=== PATIENT | male | born 1950 | race Caucasian/White ===

== ENCOUNTER 2018-08-30 00:25 | Emergency (ER) | payer OTHER ==
[2018-08-30 01:40] LABS: ADD UMIC YES; UR ASCORBIC ACID NEGATIVE (NEGATIVE); UR BACTERIA FEW /HPF (NONE SEEN); UR BILIRUBIN (Dip) NEGATIVE (NEGATIVE); UR BLOOD (Dip) 2+ mg/dL (NEGATIVE); UR CLARITY SLIGHTLY CLOUDY (CLEAR); UR COLOR YELLOW (YELLOW); UR GLUCOSE (Dip) NEGATIVE (NEGATIVE); UR KETONES (Dip) NEGATIVE (NEGATIVE); UR LEUKOCYTE ESTERASE (Dip) 2+ Leu/ul (NEGATIVE); UR MUCUS FEW /HPF (NONE SEEN); UR NITRITE (Dip) NEGATIVE (NEGATIVE); UR RBC 2 /HPF (0-5); UR TOTAL PROTEIN (Dip) NEGATIVE (NEGATIVE); UR UROBILINOGEN (Dip) NEGATIVE (NEGATIVE); UR WBC 23 /HPF (0-5)
[2018-08-30] MEDS: CEFTRIAXONE 1 GM INJ IM (02:08)
== END 2018-08-30 02:45 | disposition home or self-care (01) ==
LOC: FTE 00:25
DX: N30.00 Acute cystitis without hematuria (principal)
CPT/HCPCS: 81001; 96372; 99284-25